=== PATIENT | female | born 1945 | race Caucasian/White ===

== ENCOUNTER 2017-10-18 22:13 | Emergency (ER) | payer OTHER ==
[~2017-10-18] VITALS: Ht 172.7 cm; Wt 84.2 kg
[~2017-10-18 22:13] MED LIST: AGGRENOX1 CAPSULE PO; APIDRA100 UNIT/1 SC; ATORVASTATIN CA40 MG PO; Aggrenox PO; BACLOFEN10 MG PO; BENTYL20 MG PO; CALTRATE 6001 TABLE1 PO; CALTRATE PLUS1 EACH PO; CARTRIDGE STAM1 EACH SQ; CELEBREX200 MG PO; CELEXA20 MG PO; CIPRO500 MG PO; CITALOPRAM HBR20 MG PO; CLONAZEPAM0.5 MG PO; CRESTOR20 MG PO; CYANOCOBALAM1000 MCG PO; CYMBALTA20 MG PO; DIFLUCAN150 MG PO; DIOVAN160 MG PO; DIOVAN40 MG PO; DIOVAN80 MG PO; ERYTHROMYC1 APPLICAT BOTH EYES; ERYTHROMYC1 APPLICAT RIGHT EYE; FLAGYL250 MG PO; FLONASE16 G1 BOTH NARES; FOLIC ACID0.4 MG PO; FOLIC ACID1 MG PO; GABAPENTIN100 MG PO; GABAPENTIN800 MG PO; INSULIN PUMP SCCONT; INSULIN PUMP1 EACH MC; IRON PO; ISOSORBIDE MONO30 MG PO; LEVAQUIN750 MG PO; LIPITOR40 MG PO; LOPRESSOR12.5 MG PO; LOPRESSOR25 MG; LOPRESSOR25 MG PO; METOPROLOL TAR100 MG PO; METOPROLOL TART25 MG PO; NASONEX17 GM BOTH NARES; NEXIUM40 MG PO; NITROBID2.5 MG PO; NITROSTAT0.4 MG SL; OMEPRAZOLE20 MG PO; OMEPRAZOLE40 M1 PO; OMNIPOD1 EACH SQ; ONE DAILY COMP1 EAC1 PO; ONE-A-DAY WOM200 MCG PO; PERCOCET 10-321 EACH PO; PHENERGAN25 MG PR; PRAVACHOL40 MG PO; PRILOSEC40 MG PO; PROBIOTIC1 EAC1 PO; TAMIFLU30 MG PO; TOPROL XL50 MG PO; TYLENOL EXTRA500 MG PO; TYLENOL WITH C1 EACH PO; VITAMIN B12-FO1 EACH PO; VITAMIN D32000 UNIT PO; ZOFRAN ODT4 MG PO; ZOFRAN ODT8 MG PO; ZOLOFT100 MG PO; celeXA PO
[2017-10-18 22:16] VITALS: BP 209/81
== END 2017-10-18 22:52 | disposition home or self-care (01) ==
LOC: EME 22:13
DX: R09.89 Other specified symptoms and signs involving the circulatory and respiratory systems (principal); E11.9 Type 2 diabetes mellitus without complications; Z79.4 Long term (current) use of insulin; E78.5 Hyperlipidemia, unspecified; I10 Essential (primary) hypertension; K21.9 Gastro-esophageal reflux disease without esophagitis; Z86.73 Personal history of transient ischemic attack (TIA), and cerebral infarction without residual deficits; F32.9 Major depressive disorder, single episode, unspecified
CPT/HCPCS: 99281; 99284

== ENCOUNTER 2018-02-08 10:51 | Inpatient (IN) | payer OTHER ==
[~2018-02-08] VITALS: Ht 172.7 cm; Wt 84.0 kg
[2018-02-08 11:59] LABS: BASOPHIL (%) 0.5 % (0-1); EOSINOPHIL (%) 0.8 % (0-5); EOSINOPHIL COUNT 0.1 K/uL (0-0.3); HEMATOCRIT 32.9 % (36.0-46.0); HEMOGLOBIN 11.3 G/DL (11.9-15.5); IMMATURE GRANULOCYTE (%) 0.2 % (0.0-0.7); LYMPHOCYTE (%) 11.7 % (15-42); MCH 32.5 PG (29.0-34.0); MCHC 34.3 G/DL (30.0-36.0); MCV 94.5 FL (83-99); MONOCYTE (%) 6.7 % (3-12); MONOCYTE COUNT 0.6 K/uL (0-0.8); NEUTROPHIL (%) 80.1 % (45-76); NEUTROPHIL COUNT 6.6 K/uL (1.8-6.4); PLATELET COUNT 209 K/uL (156-360); RBC DIS.WIDTH-CV 12.1 % (11.8-14.6); RBC DIS.WIDTH-SD 41.9 % (39-53); RED BLOOD COUNT 3.48 M/uL (3.80-5.20); WHITE BLOOD COUNT 8.3 K/uL (4.1-10.2)
[2018-02-08 12:07] LABS: ALBUMIN 3.6 g/dL (3.2-4.8); CHLORIDE 109 mEq/L (99-109); POTASSIUM 4.2 mEq/L (3.7-5.4); SODIUM 142 mEq/L (136-147)
[2018-02-08 12:09] LABS: GLUCOSE 122 mg/dL (70-99); TOTAL PROTEIN 5.5 g/dL (6.4-8.3)
[2018-02-08 12:11] LABS: TOTAL BILIRUBIN 0.4 mg/dL (0.0-1.0)
[2018-02-08 12:13] LABS: ALKALINE PHOSPHATASE 99 IU/L (3-129); CREATININE 1.4 mg/dL (0.6-1.3); GFR ESTIMATE (CALCULATED) 39 mL/min/
[2018-02-08 12:14] LABS: UREA NITROGEN (BUN) 22 mg/dL (9-23)
[2018-02-08 12:15] LABS: AST (GOT) 25 IU/L (2-34)
[2018-02-08 12:16] LABS: ALT (GPT) 19 IU/L (3-49)
[2018-02-08 12:19] LABS: TROP-I INTERPRETATION POSITIVE; TROPONIN-I 0.95 ng/mL (0.0-0.30)
[2018-02-08] MEDS ORDERED: IMDUR30 MG PO (13:22)
[2018-02-08] MEDS ORDERED: AGGRENOX1 CAPSULE PO (13:22)
[2018-02-08] MEDS ORDERED: DICLOFENAC SODI75 MG PO (13:22)
[2018-02-08] MEDS ORDERED: DULOXETINE HCL30 MG PO (13:23)
[2018-02-08 15:35] VITALS: BP 146/64
[2018-02-08 19:18] LABS: TROP-I INTERPRETATION POSITIVE
[2018-02-08 19:53] LABS: INTER. NORMALIZED RATIO 1.1
[2018-02-08 20:45] LABS: PTT 212.7 SEC (25-37)
[2018-02-08 23:55] VITALS: BP 111/56
[2018-02-09 00:57] LABS: TROP-I INTERPRETATION POSITIVE
[2018-02-09 00:58] LABS: TROPONIN-I 0.65 ng/mL (0.0-0.30)
[2018-02-09 03:30] LABS: CHLORIDE 111 mEq/L (99-109); POTASSIUM 3.7 mEq/L (3.7-5.4); SODIUM 143 mEq/L (136-147)
[2018-02-09 03:35] LABS: GFR ESTIMATE (CALCULATED) 58 mL/min/
[2018-02-09 03:36] LABS: UREA NITROGEN (BUN) 16 mg/dL (9-23)
[2018-02-09 03:41] LABS: GLUCOSE 57 mg/dL (70-99)
[2018-02-09 04:00] VITALS: BP 153/70
[2018-02-09 07:30] VITALS: BP 109/54
[2018-02-09 14:54] VITALS: BP 116/62
[2018-02-09 21:00] VITALS: BP 154/60
[2018-02-10 02:08] VITALS: BP 155/68
[2018-02-10 04:20] VITALS: BP 152/64
[2018-02-10 07:03] VITALS: BP 133/63
[2018-02-10 07:12] LABS: HEMATOCRIT 32.2 % (36.0-46.0); HEMOGLOBIN 10.5 G/DL (11.9-15.5); MCH 31.7 PG (29.0-34.0); MCHC 32.6 G/DL (30.0-36.0); MCV 97.3 FL (83-99); PLATELET COUNT 190 K/uL (156-360); RBC DIS.WIDTH-CV 12.3 % (11.8-14.6); RED BLOOD COUNT 3.31 M/uL (3.80-5.20); WHITE BLOOD COUNT 9.3 K/uL (4.1-10.2)
[2018-02-10 10:39] VITALS: BP 116/82
[2018-02-10 15:00] VITALS: BP 149/62
[2018-02-10 21:00] VITALS: BP 133/63
[2018-02-11 01:26] VITALS: BP 130/58
[2018-02-11 05:31] VITALS: BP 119/57
[2018-02-11 09:00] VITALS: BP 125/58
[2018-02-11 12:13] VITALS: BP 120/58
[2018-02-11] MEDS ORDERED: CLOPIDOGREL75 MG PO (13:00)
[2018-02-11] MEDS ORDERED: ASPIR-LOW81 MG PO (13:07)
[2018-02-11] MEDS ORDERED: POLYETHYLENE GL17 GM PO (13:09)
[2018-02-11] MEDS ORDERED: HYDROMORPHONE HC2 MG PO (13:15)
[2018-02-11] MEDS ORDERED: ENDOCET 5-3251 EACH PO (13:15)
[2018-02-11] MEDS ORDERED: LISINOPRIL2.5 MG PO (13:36)
[2018-02-11 16:57] VITALS: BP 126/53
== END 2018-02-11 16:52 | DRG 282 ==
LOC: EME 10:51 → TRA 10:51 → 4EAST 13:03 → EDOF 13:03 → ENRESERV 13:06 → 4EAST 15:27 → ENPENDDIS 02-11 → 4EAST 02-11 16:52
PROVIDERS: Emergency Medicine; Internal Medicine
PROC: 0QSHXZZ Reposition Left Tibia, External Approach (ICD-10-PCS; principal; 2018-02-08)
PROC: 2W6RXZZ Traction of Left Lower Leg (ICD-10-PCS; principal; 2018-02-08)
PROC: 0QSKXZZ Reposition Left Fibula, External Approach (ICD-10-PCS; principal; 2018-02-08)
PROC: B2151ZZ Fluoroscopy of Left Heart using Low Osmolar Contrast (ICD-10-PCS; 2018-02-10)
PROC: B2111ZZ Fluoroscopy of Multiple Coronary Arteries using Low Osmolar Contrast (ICD-10-PCS; 2018-02-10)
PROC: 4A023N7 Measurement of Cardiac Sampling and Pressure, Left Heart, Percutaneous Approach (ICD-10-PCS; 2018-02-10)
DX: I21.4 Non-ST elevation (NSTEMI) myocardial infarction (principal); S82.852A Displaced trimalleolar fracture of left lower leg, initial encounter for closed fracture; W01.0XXA Fall on same level from slipping, tripping and stumbling without subsequent striking against object, initial encounter; I25.119 Atherosclerotic heart disease of native coronary artery with unspecified angina pectoris; E10.40 Type 1 diabetes mellitus with diabetic neuropathy, unspecified; Z96.41 Presence of insulin pump (external) (internal); R55 Syncope and collapse; I10 Essential (primary) hypertension; M81.0 Age-related osteoporosis without current pathological fracture; K21.9 Gastro-esophageal reflux disease without esophagitis; G89.29 Other chronic pain; M54.9 Dorsalgia, unspecified; E78.00 Pure hypercholesterolemia, unspecified; E78.5 Hyperlipidemia, unspecified; F32.9 Major depressive disorder, single episode, unspecified; F41.9 Anxiety disorder, unspecified; M19.90 Unspecified osteoarthritis, unspecified site; Z86.73 Personal history of transient ischemic attack (TIA), and cerebral infarction without residual deficits
CPT/HCPCS: 70450; 71045; 72125; 73590; 73600; 73610; 80048; 80053; 82948; 84484; 85025; 85027; 85347; 85610; 85730; 93005; 94799; 99281; 99285; C1760; C1769; C1887; C1894; J1170; J1644; J1815; J2250; J2405; J2550; J3010; J7040

== ENCOUNTER 2018-03-20 10:21 | Emergency (ER) | payer OTHER ==
[~2018-03-20] VITALS: Ht 172.7 cm; Wt 80.3 kg
[~2018-03-20 10:21] MED LIST changes: +ASPIR-LOW81 MG PO; +CLOPIDOGREL75 MG PO; +DICLOFENAC SODI75 MG PO; +DULOXETINE HCL30 MG PO; +ENDOCET 5-3251 EACH PO; +HYDROMORPHONE HC2 MG PO; +IMDUR30 MG PO; +LISINOPRIL2.5 MG PO; +POLYETHYLENE GL17 GM PO
[2018-03-20 11:19] LABS: BASOPHIL (%) 0.5 % (0-1); EOSINOPHIL (%) 0.6 % (0-5); EOSINOPHIL COUNT 0.1 K/uL (0-0.3); HEMATOCRIT 29.6 % (36.0-46.0); HEMOGLOBIN 9.9 G/DL (11.9-15.5); IMMATURE GRANULOCYTE (%) 0.4 % (0.0-0.7); LYMPHOCYTE (%) 8.9 % (15-42); LYMPHOCYTE COUNT 0.7 K/uL (1.0-2.8); MCH 31.7 PG (29.0-34.0); MCHC 33.4 G/DL (30.0-36.0); MCV 94.9 FL (83-99); MONOCYTE (%) 9.8 % (3-12); MONOCYTE COUNT 0.8 K/uL (0-0.8); NEUTROPHIL (%) 79.8 % (45-76); NEUTROPHIL COUNT 6.5 K/uL (1.8-6.4); PLATELET COUNT 261 K/uL (156-360); RBC DIS.WIDTH-CV 12.4 % (11.8-14.6); RBC DIS.WIDTH-SD 43.2 % (39-53); RED BLOOD COUNT 3.12 M/uL (3.80-5.20); WHITE BLOOD COUNT 8.1 K/uL (4.1-10.2)
[2018-03-20 11:24] LABS: INTER. NORMALIZED RATIO 0.9
[2018-03-20 11:27] LABS: CHLORIDE 103 mEq/L (99-109); POTASSIUM 3.4 mEq/L (3.7-5.4); SODIUM 138 mEq/L (136-147)
[2018-03-20 11:29] LABS: GLUCOSE 317 mg/dL (70-99)
[2018-03-20 11:33] LABS: GFR ESTIMATE (CALCULATED) 58 mL/min/; UREA NITROGEN (BUN) 13 mg/dL (9-23)
[2018-03-20 11:40] LABS: TROP-I INTERPRETATION NEGATIVE; TROPONIN-I 0.02 ng/mL (0.0-0.30)
[2018-03-20 14:26] LABS: TROP-I INTERPRETATION NEGATIVE; TROPONIN-I 0.03 ng/mL (0.0-0.30)
[2018-03-20 16:13] VITALS: BP 174/78
== END 2018-03-20 16:20 ==
LOC: EME 10:21
PROVIDERS: Emergency Medicine
DX: R07.89 Other chest pain (principal); R06.02 Shortness of breath; M79.605 Pain in left leg; E11.9 Type 2 diabetes mellitus without complications; E78.5 Hyperlipidemia, unspecified; I10 Essential (primary) hypertension; Z79.4 Long term (current) use of insulin; I25.2 Old myocardial infarction; Z86.73 Personal history of transient ischemic attack (TIA), and cerebral infarction without residual deficits; F32.9 Major depressive disorder, single episode, unspecified; K21.9 Gastro-esophageal reflux disease without esophagitis; M81.0 Age-related osteoporosis without current pathological fracture; Z86.69 Personal history of other diseases of the nervous system and sense organs
CPT/HCPCS: 71045; 71275; 80048; 82948; 83880; 84484; 85025; 85610; 85730; 93005; 93971; 99281; 99285

== ENCOUNTER 2018-03-23 17:58 | Emergency (ER) | payer OTHER ==
[~2018-03-23] VITALS: Ht 172.7 cm; Wt 85.0 kg
[2018-03-23 18:59] LABS: BASOPHIL (%) 0.4 % (0-1); EOSINOPHIL (%) 0.7 % (0-5); EOSINOPHIL COUNT 0.1 K/uL (0-0.3); HEMATOCRIT 25.1 % (36.0-46.0); HEMOGLOBIN 8.5 G/DL (11.9-15.5); IMMATURE GRANULOCYTE (%) 0.4 % (0.0-0.7); LYMPHOCYTE (%) 9.5 % (15-42); LYMPHOCYTE COUNT 0.8 K/uL (1.0-2.8); MCH 31.6 PG (29.0-34.0); MCHC 33.9 G/DL (30.0-36.0); MCV 93.3 FL (83-99); MONOCYTE (%) 9.5 % (3-12); MONOCYTE COUNT 0.8 K/uL (0-0.8); NEUTROPHIL (%) 79.5 % (45-76); NEUTROPHIL COUNT 6.4 K/uL (1.8-6.4); RBC DIS.WIDTH-CV 12.3 % (11.8-14.6); RBC DIS.WIDTH-SD 41.9 % (39-53); RED BLOOD COUNT 2.69 M/uL (3.80-5.20); WHITE BLOOD COUNT 8.1 K/uL (4.1-10.2)
[2018-03-23 19:01] LABS: PLATELET COUNT 414 K/uL (156-360)
[2018-03-23 19:02] LABS: CARBON DIOXIDE (BICARBONATE) 26.8 MEQ/L (20-31)
[2018-03-23 19:08] LABS: CHLORIDE 103 mEq/L (99-109); POTASSIUM 3.2 mEq/L (3.7-5.4); SODIUM 137 mEq/L (136-147)
[2018-03-23 19:10] LABS: GLUCOSE 324 mg/dL (70-99)
[2018-03-23 19:14] LABS: CREATININE 1.1 mg/dL (0.6-1.3); GFR ESTIMATE (CALCULATED) 52 mL/min/; UREA NITROGEN (BUN) 16 mg/dL (9-23)
[2018-03-23 20:47] LABS: APPEARANCE SL.HAZY ((CLEAR)); BILIRUBIN NEGATIVE; BLOOD NEGATIVE; COLOR YELLOW ((YELLOW)); GLUCOSE (STRIP) >=500; KETONES 5; LEUKOCYTES LARGE; NITRITE NEGATIVE; PROTEIN (STRIP) 30; SPECIFIC GRAVITY 1.018 (1.000-1.030); UROBILINOGEN 0.2 MG/DL (0.2-1.0)
[2018-03-23 20:55] LABS: BACTERIA RARE /HPF; EPITHELIAL CELLS RARE /HPF; MUCUS NONE SEEN /LPF; RED BLOOD CELLS 0-5 /HPF (0-5); WHITE BLOOD CELLS TNTC /HPF (0-5)
[2018-03-23 22:19] VITALS: BP 144/58
== END 2018-03-23 23:18 | disposition home or self-care (01) ==
LOC: EME 17:58
PROVIDERS: Physician Assistant
DX: E11.65 Type 2 diabetes mellitus with hyperglycemia (principal); E11.40 Type 2 diabetes mellitus with diabetic neuropathy, unspecified; I10 Essential (primary) hypertension; E78.5 Hyperlipidemia, unspecified; K21.9 Gastro-esophageal reflux disease without esophagitis; M81.0 Age-related osteoporosis without current pathological fracture; R56.9 Unspecified convulsions; F32.9 Major depressive disorder, single episode, unspecified; I25.2 Old myocardial infarction; Z86.73 Personal history of transient ischemic attack (TIA), and cerebral infarction without residual deficits; Z90.49 Acquired absence of other specified parts of digestive tract; Z79.4 Long term (current) use of insulin
CPT/HCPCS: 71046; 80048; 81003; 82010; 82803; 82948; 85025; 99281; 99284; J7030

== ENCOUNTER 2018-03-29 11:17 | Observation (INO) | payer OTHER ==
[~2018-03-29] VITALS: Ht 172.7 cm; Wt 83.0 kg
[2018-03-29 11:52] LABS: BASOPHIL (%) 0.7 % (0-1); BASOPHIL COUNT 0.1 K/uL (0-0.1); EOSINOPHIL COUNT 0.1 K/uL (0-0.3); HEMATOCRIT 29.9 % (36.0-46.0); HEMOGLOBIN 10.1 G/DL (11.9-15.5); IMMATURE GRANULOCYTE (%) 0.3 % (0.0-0.7); LYMPHOCYTE COUNT 0.8 K/uL (1.0-2.8); MCH 31.3 PG (29.0-34.0); MCHC 33.8 G/DL (30.0-36.0); MCV 92.6 FL (83-99); MONOCYTE COUNT 0.7 K/uL (0-0.8); NEUTROPHIL COUNT 5.3 K/uL (1.8-6.4); PLATELET COUNT 443 K/uL (156-360); RBC DIS.WIDTH-CV 13.3 % (11.8-14.6); RBC DIS.WIDTH-SD 45.9 % (39-53); RED BLOOD COUNT 3.23 M/uL (3.80-5.20)
[2018-03-29 11:59] LABS: INTER. NORMALIZED RATIO 0.9
[2018-03-29 12:01] LABS: PTT 22.8 SEC (25-37)
[2018-03-29 12:02] LABS: CHLORIDE 105 mEq/L (99-109); POTASSIUM 3.8 mEq/L (3.7-5.4); SODIUM 139 mEq/L (136-147)
[2018-03-29 12:08] LABS: GLUCOSE 234 mg/dL (70-99)
[2018-03-29 12:12] LABS: GFR ESTIMATE (CALCULATED) 58 mL/min/
[2018-03-29 12:13] LABS: UREA NITROGEN (BUN) 15 mg/dL (9-23)
[2018-03-29 12:16] LABS: TROP-I INTERPRETATION NEGATIVE; TROPONIN-I 0.01 ng/mL (0.0-0.30)
[2018-03-29] MEDS ORDERED: ATORVASTATIN CA40 MG PO (15:14)
[2018-03-29] MEDS ORDERED: LISINOPRIL5 MG PO (15:42)
[2018-03-29 17:27] VITALS: BP 162/70
[2018-03-29 19:49] LABS: TROP-I INTERPRETATION NEGATIVE; TROPONIN-I 0.03 ng/mL (0.0-0.30)
[2018-03-29 20:08] VITALS: BP 182/74
[2018-03-29] MEDS ORDERED: APIDRA SOL100 UNIT/1 SQ (21:01)
[2018-03-29] MEDS ORDERED: LANTUS 3 M100 UNITS1 SQ ×2 (21:08→21:10)
[2018-03-30 00:28] VITALS: BP 142/63
[2018-03-30 01:11] LABS: TROP-I INTERPRETATION NEGATIVE; TROPONIN-I 0.02 ng/mL (0.0-0.30)
[2018-03-30 04:16] VITALS: BP 166/70
[2018-03-30 05:15] LABS: HEMATOCRIT 30.5 % (36.0-46.0); HEMOGLOBIN 9.9 G/DL (11.9-15.5); MCH 30.4 PG (29.0-34.0); MCHC 32.5 G/DL (30.0-36.0); MCV 93.6 FL (83-99); PLATELET COUNT 439 K/uL (156-360); RBC DIS.WIDTH-CV 13.2 % (11.8-14.6); RBC DIS.WIDTH-SD 45.9 % (39-53); RED BLOOD COUNT 3.26 M/uL (3.80-5.20); WHITE BLOOD COUNT 5.6 K/uL (4.1-10.2)
[2018-03-30 06:03] LABS: CHLORIDE 103 MEQ/L (99-109); CREATININE 0.9 MG/DL (0.6-1.3); GFR ESTIMATE (CALCULATED) > 59 mL/min/; GLUCOSE 324 mg/dL (70-99); POTASSIUM 4.4 MEQ/L (3.7-5.4); SODIUM 141 MEQ/L (136-147); UREA NITROGEN (BUN) 14 mg/dL (9-23)
[2018-03-30 08:24] VITALS: BP 154/67
[2018-03-30] MEDS ORDERED: APIDRA SOL100 UNIT/1 SC (11:58)
[2018-03-30 15:40] VITALS: BP 137/65
[2018-03-30 20:20] VITALS: BP 166/68
[2018-03-30 23:45] VITALS: BP 144/66
[2018-03-31 06:00] VITALS: BP 157/64
[2018-03-31 06:13] LABS: HEMATOCRIT 29.2 % (36.0-46.0); HEMOGLOBIN 9.5 G/DL (11.9-15.5); MCH 30.5 PG (29.0-34.0); MCHC 32.5 G/DL (30.0-36.0); MCV 93.9 FL (83-99); PLATELET COUNT 385 K/uL (156-360); RBC DIS.WIDTH-CV 13.2 % (11.8-14.6); RBC DIS.WIDTH-SD 45.4 % (39-53); RED BLOOD COUNT 3.11 M/uL (3.80-5.20); WHITE BLOOD COUNT 5.2 K/uL (4.1-10.2)
[2018-03-31 06:29] LABS: CHLORIDE 105 MEQ/L (99-109); GFR ESTIMATE (CALCULATED) 58 mL/min/; GLUCOSE 241 mg/dL (70-99); POTASSIUM 4.4 MEQ/L (3.7-5.4); SODIUM 144 MEQ/L (136-147); UREA NITROGEN (BUN) 14 mg/dL (9-23)
[2018-03-31 08:06] VITALS: BP 141/67
[2018-03-31 12:10] VITALS: BP 132/60
[2018-03-31 15:28] VITALS: BP 132/60
[2018-03-31 15:50] LABS: IRON 40 MCG/DL (35-150)
[2018-03-31 16:26] LABS: FOLIC ACID (FOLATE) > 22.0 NG/ML (5.0-22.0)
[2018-03-31 16:40] LABS: FERRITIN 40 NG/ML (10-291)
[2018-03-31 17:07] LABS: ABSOLUTE RETICULOCYTE CT. 0.05 M/uL (0.02-0.08); IMM.RETIC FRACTION 14.4 % (3-19); RETIC HGB EQUIVALENT 31.1 (28-36); RETICULOCYTE COUNT 1.4 % (0.5-1.8)
[2018-03-31 19:54] VITALS: BP 151/69
[2018-04-01 00:02] VITALS: BP 130/60
[2018-04-01 04:07] VITALS: BP 130/60
[2018-04-01 04:55] VITALS: BP 171/72
[2018-04-01 05:09] VITALS: BP 170/72
[2018-04-01 06:56] LABS: HEMATOCRIT 30.5 % (36.0-46.0); MCH 31.1 PG (29.0-34.0); MCHC 32.8 G/DL (30.0-36.0); MCV 94.7 FL (83-99); PLATELET COUNT 406 K/uL (156-360); RBC DIS.WIDTH-CV 12.9 % (11.8-14.6); RBC DIS.WIDTH-SD 44.6 % (39-53); RED BLOOD COUNT 3.22 M/uL (3.80-5.20); WHITE BLOOD COUNT 4.7 K/uL (4.1-10.2)
[2018-04-01 07:32] LABS: ERTH.SED.RATE 62 MM/HR (0-30)
[2018-04-01 08:04] VITALS: BP 120/58
[2018-04-01 09:03] LABS: A/G RATIO 1.2 (1.1-1.8); ALBUMIN 2.9 G/DL (3.4-5.0); CHLORIDE 104 MEQ/L (99-109); GFR ESTIMATE (CALCULATED) 58 mL/min/; GLOBULINS 2.4 G/DL (2.3-3.5); MAGNESIUM 1.6 mg/dl (1.3-2.7); SODIUM 142 MEQ/L (136-147); THYROTROPIN (TSH) 4.4 MIU/L (0.4-5.5); TOTAL PROTEIN 5.3 G/DL (6.4-8.2); UREA NITROGEN (BUN) 14 mg/dL (9-23)
[2018-04-01 09:11] LABS: GLUCOSE 117 mg/dL (70-99)
[2018-04-01] MEDS ORDERED: ELIQUIS5 MG PO (09:17)
[2018-04-01 15:17] LABS: ALBUMIN 2.53 G/DL (3.6-4.9); ALPHA-1 GLOBULIN 0.45 G/DL (0.15-0.40); ALPHA-2 GLOBULIN 1.03 G/DL (0.45-0.85); GAMMA-GLOBULIN 0.59 G/DL (0.60-1.35)
== END 2018-04-01 11:27 ==
LOC: EME 11:17 → EDOF 14:12 → 3EAST 14:12 → 4SOUTH 14:12 → EDOF 14:12 → ENRESERV 14:14 → CANRESERV 14:14 → ENRESERV 14:43 → 4SOUTH 16:30 → 3EAST 03-30 14:11 → ENRESERV 03-30 16:22 → 3EAST 03-30 19:50
PROVIDERS: Emergency Medicine; Hospitalist; Internal Medicine; Physician Assistant Medical
DX: R07.9 Chest pain, unspecified (principal); I26.99 Other pulmonary embolism without acute cor pulmonale; I82.412 Acute embolism and thrombosis of left femoral vein; I25.10 Atherosclerotic heart disease of native coronary artery without angina pectoris; I25.2 Old myocardial infarction; I10 Essential (primary) hypertension; E11.9 Type 2 diabetes mellitus without complications; Z98.890 Other specified postprocedural states; R51 Headache; E78.5 Hyperlipidemia, unspecified; S82.892D Other fracture of left lower leg, subsequent encounter for closed fracture with routine healing; Z79.82 Long term (current) use of aspirin; Z79.4 Long term (current) use of insulin; Z79.01 Long term (current) use of anticoagulants; Z90.49 Acquired absence of other specified parts of digestive tract; Z79.02 Long term (current) use of antithrombotics/antiplatelets; D63.8 Anemia in other chronic diseases classified elsewhere; Z82.49 Family history of ischemic heart disease and other diseases of the circulatory system; Z83.3 Family history of diabetes mellitus; Z82.0 Family history of epilepsy and other diseases of the nervous system; Z88.8 Allergy status to other drugs, medicaments and biological substances
CPT/HCPCS: 71045; 71275; 80048; 82607; 82728; 82746; 82948; 83540; 83735; 83883 90; 84165; 84443; 84484; 85025; 85027; 85046; 85610; 85651; 85730; 93005; 93971; 99281; 99285; G0378; J1644; J1815